=== PATIENT | male | born 1960 | race Caucasian/White ===

== ENCOUNTER 2018-10-04 10:08 | Emergency (ER) | payer OTHER ==
[2018-10-04 10:18] VITALS: BP 146/66
--- NOTE | 2018-10-04 10:23 | EDPHY ---
H & P Stated Complaint: fall 5 ft from ladder L foot pain yesterday am Time Seen by Provider: 10/04/18 10:18 HPI/ROS: CHIEF COMPLAINT: Left foot pain HISTORY OF PRESENT ILLNESS: The patient is a 57-year-old man who was working yesterday on a ladder approximately 5 ft up. He was trying to open a frozen door and when it came open he lost his balance and fell off the ladder. He fell backwards and initially caught himself with his left foot and then rolled onto his butt and back. He has been ambulatory since the event. He went to work today but noticed it was increasingly swollen and bruised over the bridge of his foot. No ankle or knee pain. No hip pain. No back or neck pain. No head injury. He is able to ambulate but with pain. Severity: Moderate Modifying factors: Worsened with weight-bearing or dorsiflex and foot REVIEW OF SYSTEMS: Constitutional: denies: chills, fever, recent illness, recent injury EENTM: denies: blurred vision, double vision, nose congestion Respiratory: denies: cough, shortness of breath Cardiac: denies: chest pain, irregular heart rate, lightheadedness, palpitations Gastrointestinal/Abdominal: denies: abdominal pain, diarrhea, nausea, vomiting, blood streaked stools Genitourinary: denies: dysuria, frequency, hematuria, pain Musculoskeletal: See HPI Neurologic: No tingling or numbness Hematologic/Lymphatic: denies: blood clots, easy bleeding, easy bruising Immunologic/allergic: denies: HIV/AIDS, transplant 10 systems reviewed and negative except as noted EXAM: GENERAL: Well-appearing, well-nourished and in no acute distress. HEAD: Atraumatic, normocephalic. EYES: Pupils equal round and reactive to light, extraocular movements intact, sclera anicteric, conjunctiva are normal. ENT: TMs normal, nares patent, oropharynx clear without exudates. Moist mucous membranes. NECK: Normal range of motion, supple without lymphadenopathy or JVD. LUNGS: Breath sounds clear to auscultation bilaterally and equal. No wheezes rales or rhonchi. HEART: Regular rate and rhythm without murmurs, rubs or gallops. ABDOMEN: Soft, nontender, normoactive bowel sounds. No guarding, no rebound. No masses appreciated. BACK: No CVA tenderness, no spinal tenderness, step-offs or deformities EXTREMITIES: Mild bruising and swelling along the bridge his left foot. Mildly tender. No open wounds. No ankle or toe pain. No plantar bruising. NEUROLOGICAL: Cranial nerves II through XII grossly intact. Normal speech, normal gait. 5/5 strength, normal movement in all extremities, normal sensation , normal reflexes PSYCH: Normal mood, normal affect. SKIN: Warm, dry, normal turgor, no visible rashes or lesions. Source: Patient Exam Limitations: No limitations - Medical/Surgical History Hx Asthma: No Hx Chronic Respiratory Disease: No Hx Diabetes: No Hx Cardiac Disease: No Hx Renal Disease: No Hx Cirrhosis: No Hx Alcoholism: No Hx HIV/AIDS: No Other PMH: denies - Family History Significant Family History: No pertinent family hx - Social History Smoking Status: Never smoked Alcohol Use: None Constitutional: Initial Vital Signs Temperature (C) 37.1 C 10/04/18 10:15 Heart Rate 67 10/04/18 10:15 Respiratory Rate 14 10/04/18 10:15 Blood Pressure 146/66 H 10/04/18 10:15 O2 Sat (%) 95 10/04/18 10:15 O2 Delivery Mode Room Air Allergies/Adverse Reactions: No Known Allergies Allergy (Verified 10/04/18 10:13) Home Medications: Medication Instructions Recorded NK [No Known Home Meds] 11/20/15 Medical Decision Making - Diagnostics Imaging Results: Imaging Impressions Foot X-Ray 10/04/18 10:20 Impression: Borderline wide interval between the first and second metatarsals. Query Lisfranc injury. Recommend proceeding with weightbearing films to optimally characterize. Comment: Case discussed with Dr. Abel Marsh. Foot X-Ray 10/04/18 10:39 Impression: Borderline-widening of the medial aspect of the Lisfranc joint at the base of the first and second digits, with no obvious fracture. If there is further clinical concern, MR imaging could be considered. Imaging: Discussed imaging studies w/ rn call center Radiologist ED Course/Re-evaluation: We discussed the x-ray results. I have them perform weight-bearing to a closer look at Lisfranc type injury. Patient is able to ambulate with his boots on. He declines splinting. I advised him to to follow up with Ortho and possibly an MRI if he has continued pain after several days. He agrees with this plan and declines further workup or testing at this time. Differential Diagnosis: Partial list of the Differential diagnosis considered include but were not limited to; contusion, fracture, dislocation, ligamentous injury and although unlikely based on the history and physical exam, I also considered ankle injury , to injury, knee injury. I discussed these differential diagnoses and the plan with the patient as well as the usual and expected course. The patient understands that the diagnosis is provisional and that in medicine we are not always correct and that further workup is often warranted. Usual and customary warnings were given. All of the patient's questions were answered. The patient was instructed to return to the emergency department should the symptoms at all worsen or return, otherwise to followup with the physician as we discussed. Departure - Departure Disposition: Home, Routine, Self-Care Clinical Impression: Contusion of foot, left Qualifiers: Encounter type: initial encounter Qualified Code(s): S90.32XA - Contusion of left foot, initial encounter Condition: Fair Instructions: Foot Contusion (ED) Additional Instructions: If you have persisted pain in 1 week I would recommend an MRI to rule out ligamentous injury. Referrals: NONE *PRIMARY CARE P,. [Primary Care Provider] - As per Instructions Urban Pedroza MD [Medical Doctor] - 5-7 days, if not improved
== END 2018-10-04 11:22 | disposition home or self-care (01) ==
LOC: CED 10:08
DX: S90.32XA Contusion of left foot, initial encounter (principal); W11.XXXA Fall on and from ladder, initial encounter; Y92.9 Unspecified place or not applicable; Y99.0 Civilian activity done for income or pay; Y93.89 Activity, other specified
CPT/HCPCS: 73620-PO; 73630-PO; 99283-ER